=== PATIENT | male | born 1960 ===

== ENCOUNTER 2017-01-12 22:38 | Emergency (ER) | payer OTHER ==
[2017-01-12 22:38] VITALS: BMI 31.1
[2017-01-12 23:11] VITALS: BP 146/85; PULSE 71; RESP 18; TEMP 98.1; O2SAT 95
[2017-01-12] MEDS ORDERED: Oxycodone/Acetaminophen 5/325 mg Tab PO STA (23:31)
[2017-01-12] MEDS ORDERED: Oxycodone/Acetaminophen 5/325 mg Tab ONE (23:41)
--- NOTE | 2017-01-13 00:07 | C.PDOC ---
History Of Present Illness 56 year old male presents to the ED with complaints of left hand pain. Patient states it began four years ago with an injury and notes two weeks ago he began to use a brace for his hand. Pt was seen by PMD and was prescribed tramadol for pain is using medications but with no relief to the pain in the left hand. Patient denies any radiation of pain to his left arm, weakness, numbness. Time Seen by Provider: 01/12/17 23:10 Chief Complaint (Nursing): Finger,Hand,&Wrist History Per: Patient History/Exam Limitations: no limitations Onset/Duration Of Symptoms: Persistent Current Symptoms Are (Timing): Still Present Quality: "Pain" Exacerbating Factor(s): Movement Recent travel outside of the [place]: No Past Medical History Reviewed: Historical Data, Nursing Documentation, Vital Signs Vital Signs: Last Vital Signs Temp 98.1 F 01/12/17 23:09 Pulse 71 01/12/17 23:09 Resp 18 01/12/17 23:09 BP 146/85 01/12/17 23:09 Pulse Ox 95 01/13/17 00:20 - Medical History PMH: Arthritis, Asthma, Diabetes, Gastritis (treated with protonix), Hypercholesterolemia Family History: States: Unknown Family Hx - Social History Hx Tobacco Use: Yes Hx Alcohol Use: Yes Hx Substance Use: No - Immunization History Hx Tetanus Toxoid Vaccination: Yes Hx Influenza Vaccination: Yes Hx Pneumococcal Vaccination: Yes Review Of Systems Constitutional: Negative for: Fever, Chills, Sweats Cardiovascular: Negative for: Chest Pain, Palpitations Respiratory: Negative for: Cough, Shortness of Breath Gastrointestinal: Negative for: Nausea, Vomiting, Abdominal Pain, Diarrhea Musculoskeletal: Positive for: Hand Pain (left hand pain) Neurological: Negative for: Headache Physical Exam - Physical Exam Appears: Non-toxic, No Acute Distress Skin: Warm, Dry Eye(s): bilateral: Normal Inspection, PERRL Oral Mucosa: Moist Neck: Supple Chest: Symmetrical, No Deformity Cardiovascular: Rhythm Regular Respiratory: No Rales, No Rhonchi, No Stridor, No Wheezing Extremity: Normal ROM, Capillary Refill (good capillary refill ), No Deformity, Swelling (swelling to the dorsal aspect of the thenar eminence of left hand with localized warmth and erythema), Other (no proximal streaking, no fingers involvement) Extremity: Bilateral: Atraumatic Pulses: Left Radial: Normal, Right Radial: Normal Neurological/Psych: Oriented x3, Normal Motor, Normal Sensation Gait: Steady ED Course And Treatment O2 Sat by Pulse Oximetry: 95 (room air) Pulse Ox Interpretation: Normal Progress Note: Pt received PO clindamycin and percocet and was placed in sling for elevation. Advised wound check in 2 days with pMD -Area was marked with skin marker. Pt understands return precautions Reassessment Condition: Improved Disposition Counseled Patient/Family Regarding: Diagnosis, Need For Followup, Rx Given - Disposition Referrals: Nick Clark MD [Medical Doctor] - Disposition: HOME/ ROUTINE Disposition Time: 00:04 Condition: STABLE Additional Instructions: Please take meds as directed Apply warm compress to affected hand Wound check on friday with PMD Return to ER if worse Prescriptions: Clindamycin [Cleocin] 300 mg PO QID #28 cap Instructions: Cellulitis (ED) - Clinical Impression Clinical Impression: Cellulitis of hand excluding fingers - Scribe Statement The provider has reviewed the documentation as recorded by the Scribcece Aroryo All medical record entries made by the Albaibcece were at my direction and personally dictated by me. I have reviewed the chart and agree that the record accurately reflects my personal performance of the history, physical exam, medical decision making, and the department course for this patient. I have also personally directed, reviewed, and agree with the discharge instructions and disposition.
--- NOTE | 2017-01-13 00:07 | C.PDOC ---
Time Seen by Provider: 01/12/17 23:10 Chief Complaint (Nursing): Finger,Hand,&Wrist Past Medical History Vital Signs: Last Vital Signs Temp 98.1 F 01/12/17 23:09 Pulse 71 01/12/17 23:09 Resp 18 01/12/17 23:09 BP 146/85 01/12/17 23:09 Pulse Ox 95 01/12/17 23:09 - Medical History PMH: Arthritis, Asthma, Diabetes, Gastritis (treated with protonix), Hypercholesterolemia Family History: States: Unknown Family Hx - Social History Hx Tobacco Use: Yes Hx Alcohol Use: Yes Hx Substance Use: No - Immunization History Hx Tetanus Toxoid Vaccination: Yes Hx Influenza Vaccination: Yes Hx Pneumococcal Vaccination: Yes ED Course And Treatment O2 Sat by Pulse Oximetry: 95 Disposition Counseled Patient/Family Regarding: Diagnosis, Need For Followup, Rx Given - Disposition Referrals: Nick Clark MD [Medical Doctor] - Disposition: HOME/ ROUTINE Disposition Time: 00:04 Condition: STABLE Additional Instructions: Please take meds as directed Apply warm compress to affected hand Wound check on friday with PMD Return to ER if worse Prescriptions: Clindamycin [Cleocin] 300 mg PO QID #28 cap Instructions: Cellulitis (ED) - Clinical Impression Clinical Impression: Cellulitis of hand excluding fingers
== END 2017-01-13 00:12 | disposition home or self-care (01) ==
LOC: C.ER 22:38
DX: L03.114 Cellulitis of left upper limb (principal); E78.00 Pure hypercholesterolemia, unspecified; E11.9 Type 2 diabetes mellitus without complications; F17.210 Nicotine dependence, cigarettes, uncomplicated

== ENCOUNTER 2018-08-19 13:56 | Inpatient (IN) | payer OTHER ==
[2018-08-19 14:12] VITALS: BMI 32.9
[2018-08-19] MEDS ORDERED: Albuterol-Ipratrop 3 mg / 0.5 (3 ml) UD INH STA ×3 (14:18→15:42)
[2018-08-19] MEDS ORDERED: Albuterol-Ipratrop 3 mg / 0.5 (3 ml) UD ONE ×4 (14:19→20:06)
--- NOTE | 2018-08-19 15:08 | C.PDOC ---
History Of Present Illness 57 y/o male comes in stating that he was sent here by Dr. Clark for evaluation of COPD exacerbation and elevated blood sugar. States his blood sugar was upwards to [address] Clark. Patient reports 3-4 day history of difficulty breathing, intermittent chest tightness, and worsening cough with white sputum. States he uses ventolin pump without relief. Patient also reports that he only takes his diabetes medications once a week and doesnt monitor what he eats. Also complains of dry mouth and increased urinary frequency over last 2 days. Otherwise no fever, chills, chest pain, palpitations, nausea, vomiting, or abdominal pain. Time Seen by Provider: 08/19/18 14:24 Chief Complaint (Nursing): Shortness Of Breath History Per: Patient History/Exam Limitations: no limitations Onset/Duration Of Symptoms: Days Current Symptoms Are (Timing): Still Present Past Medical History Reviewed: Historical Data, Nursing Documentation, Vital Signs Vital Signs: Last Vital Signs Temp Pulse 84 08/19/18 14:12 Resp 22 08/19/18 14:12 BP 133/82 08/19/18 14:12 Pulse Ox 98 08/19/18 14:12 - Medical History PMH: Arthritis, Asthma, COPD, Diabetes, Gastritis (treated with protonix), Hypercholesterolemia Family History: States: No Known Family Hx - Social History Hx Tobacco Use: Yes Hx Alcohol Use: No (pt denies) Hx Substance Use: No - Immunization History Hx Tetanus Toxoid Vaccination: Yes Hx Influenza Vaccination: Yes Hx Pneumococcal Vaccination: Yes Review Of Systems Except As Marked, All Systems Reviewed And Found Negative. Cardiovascular: Positive for: Other (Chest tightness) Respiratory: Positive for: Cough (productive, with white sputum), Shortness of Breath Physical Exam - Physical Exam Appears: Non-toxic, No Acute Distress, Other (lying on stretcher with nebulizer mask on) Skin: Warm, Dry Head: Atraumatic, Normacephalic Eye(s): bilateral: Normal Inspection Oral Mucosa: Moist Neck: Supple Cardiovascular: Rhythm Regular, No Murmur Respiratory: No Rales, No Rhonchi, Wheezing (throughout with occasional cough) Gastrointestinal/Abdominal: Tenderness (to epigastric region, mild) Extremity: Bilateral: Atraumatic, Normal Color And Temperature, Normal ROM Neurological/Psych: Oriented x3, Normal Speech (speaking full sentences) ED Course And Treatment - Laboratory Results Result Diagrams: 08/19/18 15:08 08/19/18 15:08 ECG: Interpreted By Me, Viewed By Me ECG Rhythm: Sinus Rhythm (Normal) Interpretation Of ECG: Normal intervals. Normal axis. No ST/T wave abnormalities. Rate From EC O2 Sat by Pulse Oximetry: 98 (RA) Pulse Ox Interpretation: Normal - Other Rad CXR X-Ray: Read By Radiologist Interpretation: FINDINGS: LUNGS: No focal consolidation. Please note that chest x-ray has limited sensitivity for the detection of pulmonary masses. PLEURA: No significant pleural effusion identified. No definite pneumothorax . CARDIOVASCULAR: Heart size appears within normal limits. No atherosclerotic calcification present. OSSEOUS STRUCTURES: No acute osseous abnormality identified. VISUALIZED UPPER ABDOMEN: Unremarkable. OTHER FINDINGS: None. IMPRESSION: No focal consolidation. Medical Decision Making Medical Decision Making: Impression: Asthma, COPD exacerbation, hyperglycemia Plan: --VBG --EKG --Bloodwork --Chest XR --UA --Duoneb --Solumedrol IV Disposition Discussed With Dr.: Eric Mayorga Doctor Will See Patient In The: Hospital Counseled Patient/Family Regarding: Studies Performed, Diagnosis - Disposition Disposition: HOSPITALIZED Disposition Time: 15:56 Condition: FAIR Forms: [employer] ([place]) - Clinical Impression Clinical Impression: Asthma exacerbation, Hyperglycemia - Scribe Statement The provider has reviewed the documentation as recorded by the Mendoza Hooks Provider Attestation: All medical record entries made by the Albaibcece were at my direction and personally dictated by me. I have reviewed the chart and agree that the record accurately reflects my personal performance of the history, physical exam, medical decision making, and the department course for this patient. I have also personally directed, reviewed, and agree with the discharge instructions and disposition.
[2018-08-19 15:13] LABS: BASO # 0.1 K/uL (0.0-0.2); BASO % 1.2 % (0.0-2.0); EOS # 0.2 K/uL (0.0-0.7); EOS % 3.2 % (0.0-4.0); HEMOGLOBIN 15.8 g/dL (12.0-18.0); LYMPH # 1.8 K/uL (1.0-4.3); LYMPH % 25.3 % (20.0-40.0); MEAN CELL VOLUME 93.5 fL (80.0-94.0); MEAN CORPUSCULAR HEMOGLOBIN 31.3 pg (27.0-31.0); MEAN CORPUSCULAR HGB CONC 33.5 g/dL (33.0-37.0); MEAN PLATELET VOLUME 9.1 fL (7.2-11.7); MONO # 0.6 K/uL (0.0-0.8); MONO % 8.5 % (0.0-10.0); NEUT # 4.3 K/uL (1.8-7.0); NEUT % 61.8 % (50.0-75.0); RBC 5.04 Mil/uL (4.40-5.90); RED CELL DISTRIBUTION WIDTH 13.6 % (11.5-14.5)
[2018-08-19 15:16] LABS: SQUAMOUS EPITHIAL 1 /hpf (0-5); URINE BILIRUBIN NEGATIVE (NEGATIVE); URINE BLOOD NEGATIVE (NEGATIVE); URINE CLARITY Clear (Clear); URINE COLOR Straw (YELLOW); URINE GLUCOSE (UA) 3+ mg/dL (Normal); URINE LEUKOCYTE ESTERASE NEG Leu/uL (Negative); URINE PROTEIN NEGATIVE (NEGATIVE); URINE UROBILINOGEN NORMAL mg/dL (0.2-1.0)
[2018-08-19] MEDS ORDERED: (Novolin R) Insulin Human Regular 100 units/ml vial IV ONE (15:22)
--- NOTE | 2018-08-19 15:32 | RAD ---
HISTORY: chest pain COMPARISON: Chest x-ray performed 05/17/14 TECHNIQUE: Chest PA and lateral FINDINGS: LUNGS: No focal consolidation. Please note that chest x-ray has limited sensitivity for the detection of pulmonary masses. PLEURA: No significant pleural effusion identified. No definite pneumothorax . CARDIOVASCULAR: Heart size appears within normal limits. No atherosclerotic calcification present. OSSEOUS STRUCTURES: No acute osseous abnormality identified. VISUALIZED UPPER ABDOMEN: Unremarkable. OTHER FINDINGS: None. IMPRESSION: No focal consolidation.
[2018-08-19] MEDS ORDERED: (Novolin R) Insulin Human Regular 100 units/ml vial ONE ×2 (15:36→21:29)
[2018-08-19 15:38] LABS: ALB/GLOB RATIO 1.6 (1.0-2.1); ALBUMIN 4.7 g/dL (3.5-5.0); ALT/SGPT 31 U/L (21-72); AST/SGOT 19 U/L (17-59); BLOOD UREA NITROGEN 19 mg/dL (9-20); CALCIUM 9.9 mg/dl (8.6-10.4); GFR NON-AFRICAN AMERICAN > 60
[2018-08-19 15:44] LABS: B-TYPE NATRIURETIC PEPTIDE 26.8 pg/mL (0-900)
[2018-08-19 15:44] LABS: VENOUS BLOOD GAS BASE EXCESS 0.5 mmol/L (0.0-2.0); VENOUS BLOOD GAS PCO2 44 mmHg (40-60); VENOUS BLOOD GAS PO2 49 mm/Hg (30-55); VENOUS BLOOD PH 7.38 (7.32-7.43)
--- NOTE | 2018-08-19 17:06 | CP.PCM.HP ---
<[place] - Last Filed: 08/19/18 17:57> History of Present Illness - History of Present Illness History of Present Illness: History and Physical for Dr. Mayorga Patient is a 57 year old male with PMHx asthma, DM II, CAD s/p stent 2 year ago, and chronic hip/back pain who presents to ED after being sent by PMD for shortness of breath and hyperglycemia. Patient states that he has had asthma since he was young and has always had difficulty breathing. He takes singulair and uses ventolin inhaler as often as every 2 hours, and going through an inhaler every 2 weeks. He takes one pill for DM, but is unsure which medication. Patient also has a history of CAD with coronary stenting, which was done in [place], but has not followed up with cardiology and takes no medications for CAD. Patient states today he was at his PMD (Dr. Vargas) for routine bloodwork/follow up and was sent to [facility] ED due to hyperglycemia and shortness of breath. He does have a history of seemingly uncontrolled diabetes with diabetic retinopathy. Patient does also have a history of chronic low ashley k/hip pain from hip injury s/p L STEPHANIE 2 years ago and takes pain medications chronically, but again unsure name of medication. Past medical Hx: asthma, DM II, DM retinopathy, CAD s/p stent 2 year ago, chronic hip/back pain Surgical hx: L STEPHANIE 2 years ago, Coronary angioplasty with stenting Allergies: ASA (reaction unknown) Social: Smokes 5-7 cigarettes/day since age 18, drinks 2-3 shots or beers on Fridays, occasional marijuana, denies other illicit drug or IV use Family Hx: Significant family hx of DM - father, mother, sister Medications: Ventolin, Singulair - Other medications will need to be confirmed with patient's pharmacy or patient states he will obtain list in the morning PMD: Dr. Vargas Present on Admission - Present on Admission Any Indicators Present on Admission: No Review of Systems - Constitutional Constitutional: absent: Chills, Fatigue, Fever - EENT Eyes: Blurred Vision (2/2 DM retinopathy). absent: Diplopia Nose/Mouth/Throat: absent: Epistaxis, Nasal Congestion - Cardiovascular Cardiovascular: absent: Chest Pain, Chest Pain at Rest, Palpitations, Pedal Edema - Gastrointestinal Gastrointestinal: absent: Abdominal Pain, Diarrhea, Nausea - Genitourinary Genitourinary: Nocturia, Urinary Frequency. absent: Dysuria - Musculoskeletal Musculoskeletal: Back Pain, Limited Range of Motion, Stiffness - Neurological Neurological: absent: Confusion, Dizziness, Focal Weakness - Psychiatric Psychiatric: absent: Anxiety, Depression - Endocrine Endocrine: Polydipsia, Polyuria. absent: Fatigue Past Patient History - Past Social History Smoking Status: Light Smoker < 10 Cigarettes Daily - CARDIAC Hx Hypercholesterolemia: Yes - PULMONARY Hx Asthma: Yes Hx Chronic Obstructive Pulmonary Disease (COPD): Yes - ENDOCRINE/METABOLIC Hx Endocrine Disorders: Yes Hx Diabetes Mellitus Type 2: Yes - MUSCULOSKELETAL/RHEUMATOLOGICAL Hx Arthritis: Yes - GASTROINTESTINAL Hx Gastritis: Yes (treated with protonix) - GENITOURINARY/GYNECOLOGICAL Hx Genitourinary Disorders: No - PSYCHIATRIC Hx Substance Use: No - SURGICAL HISTORY Hx Surgeries: Yes Hx Joint Replacement: Yes (left hip) - ANESTHESIA Hx Anesthesia: Yes Hx Anesthesia Reactions: No Meds Allergies/Adverse Reactions: Allergies Allergy/AdvReac Type Severity Reaction Status Date / Time aspirin Allergy SHORTNESS Verified 08/19/18 14:12 OF BREATH Physical Exam - Constitutional Appears: Non-toxic - Head Exam Head Exam: ATRAUMATIC, NORMOCEPHALIC - Eye Exam Eye Exam: EOMI - ENT Exam ENT Exam: Mucous Membranes Moist - Respiratory Exam Respiratory Exam: Wheezes (Diffuse inspiratory and expiratory wheezing). absent: Rales, Rhonchi - Cardiovascular Exam Cardiovascular Exam: REGULAR RHYTHM, +S1, +S2 - GI/Abdominal Exam GI & Abdominal Exam: Firm, Normal Bowel Sounds. absent: Tenderness - Extremities Exam Extremities exam: Positive for: pedal pulses present. Negative for: pedal edema, tenderness - Back Exam Back exam: absent: paraspinal tenderness, vertebral tenderness Additional comments: Lower back tenderness bilaterally, worse on left side - Neurological Exam Neurological exam: Alert, CN II-XII Intact, Oriented x3 Additional comments: Limited vision - unable to read his hospital bracelet - Psychiatric Exam Psychiatric exam: Normal Affect, Normal Mood - Skin Skin Exam: Dry, Intact, Normal Color Results - Vital Signs Recent Vital Signs: Last Vital Signs Temp Pulse 84 08/19/18 14:12 Resp 22 08/19/18 14:12 BP 133/82 08/19/18 14:12 Pulse Ox 98 08/19/18 15:56 - Labs Result Diagrams: 08/19/18 15:08 08/19/18 15:08 Labs: Laboratory Results - last 24 hr 08/19/18 08/19/18 08/19/18 14:18 15:08 15:08 WBC 7.0 RBC 5.04 Hgb 15.8 Hct 47.1 MCV 93.5 MCH 31.3 H MCHC 33.5 RDW 13.6 Plt Count 253 MPV 9.1 Neut % (Auto) 61.8 Lymph % (Auto) 25.3 Dillon % (Auto) 8.5 Eos % (Auto) 3.2 Baso % (Auto) 1.2 Neut # (Auto) 4.3 Lymph # (Auto) 1.8 Dillon # (Auto) 0.6 Eos # (Auto) 0.2 Baso # (Auto) 0.1 pO2 VBG pH VBG pCO2 VBG HCO3 VBG Total CO2 VBG O2 Sat (Calc) VBG Base Excess VBG Potassium Glucose Lactate Crit Value Called To Crit Value Called By Crit Value Read Back Blood Gas Notified Time Sodium 134 Potassium 4.5 Chloride 99 Carbon Dioxide 26 Anion Gap 14 BUN 19 Creatinine 0.7 L Est GFR ( Amer) > 60 Est GFR (Non-Af Amer) > 60 POC Glucose (mg/dL) 465 H* Random Glucose 491 H* Calcium 9.9 Total Bilirubin 0.5 AST 19 ALT 31 Alkaline Phosphatase 127 H Troponin I < 0.0120 NT-Pro-B Natriuret Pep 26.8 Total Protein 7.7 Albumin 4.7 Globulin 3.0 Albumin/Globulin Ratio 1.6 Venous Blood Potassium Urine Color Urine Clarity Urine pH Ur Specific [place] Urine Protein Urine Glucose (UA) Urine Ketones Urine Blood Urine Nitrate Urine Bilirubin Urine Urobilinogen Ur Leukocyte Esterase Urine WBC (Auto) Urine RBC (Auto) Ur Squamous Epith Cells 08/19/18 08/19/18 15:08 15:35 WBC RBC Hgb Hct MCV MCH MCHC RDW Plt Count MPV Neut % (Auto) Lymph % (Auto) Dillon % (Auto) Eos % (Auto) Baso % (Auto) Neut # (Auto) Lymph # (Auto) Dillon # (Auto) Eos # (Auto) Baso # (Auto) pO2 49 VBG pH 7.38 VBG pCO2 44 VBG HCO3 24.9 VBG Total CO2 27.4 VBG O2 Sat (Calc) 88.1 H VBG Base Excess 0.5 VBG Potassium 4.2 Glucose 423 H* Lactate 1.3 Crit Value Called To Ioana shipley md Crit Value Called By Wandy Crit Value Read Back Y Blood Gas Notified Time 1543 Sodium 136.0 Potassium Chloride 101.0 Carbon Dioxide Anion Gap BUN Creatinine Est GFR ( Amer) Est GFR (Non-Af Amer) POC Glucose (mg/dL) Random Glucose Calcium Total Bilirubin AST ALT Alkaline Phosphatase Troponin I NT-Pro-B Natriuret Pep Total Protein Albumin Globulin Albumin/Globulin Ratio Venous Blood Potassium 4.2 Urine Color Straw Urine Clarity Clear Urine pH 6.0 Ur Specific [place] 1.029 Urine Protein Negative Urine Glucose (UA) 3+ H Urine Ketones Negative Urine Blood Negative Urine Nitrate Negative Urine Bilirubin Negative Urine Urobilinogen Normal Ur Leukocyte Esterase Neg Urine WBC (Auto) < 1 Urine RBC (Auto) 1 Ur Squamous Epith Cells 1 Assessment & Plan - Assessment and Plan (Free Text) Assessment: Asthma, uncontrolled -CXR 08/19/18: No focal consolidations -F/u pharmacy for home meds -Meds started: --Duoneb INH Q4 YUNG --Breo 100-25 1 puff daily --Singular 10 mg PO HS --Spiriva 18 mcg INH Q24 YUNG --Solumedrol 40 mg IV Daily -Labs: --Routine labs --VBG WNL DM II, Uncontrolled -ISS high dose -Lisinopril 2.5 mg po daily -Accuchecks ACHS -A1C CAD w/ hx coronary stenting -Will start patient on statin PPx -Heparin 5000 U SC Q8 Assessment and plan discussed with Dr. iTerra Hill, PGY-1 <Eric Mayorga H - Last Filed: 08/19/18 19:24> Results - Vital Signs Recent Vital Signs: Last Vital Signs Temp 98.3 F 08/19/18 18:21 Pulse 84 08/19/18 18:21 Resp 20 08/19/18 17:57 BP 134/71 08/19/18 18:21 Pulse Ox 96 08/19/18 18:21 - Labs Result Diagrams: 08/19/18 15:08 08/19/18 15:08 Labs: Laboratory Results - last 24 hr 08/19/18 08/19/18 08/19/18 14:18 15:08 15:08 WBC 7.0 RBC 5.04 Hgb 15.8 Hct 47.1 MCV 93.5 MCH 31.3 H MCHC 33.5 RDW 13.6 Plt Count 253 MPV 9.1 Neut % (Auto) 61.8 Lymph % (Auto) 25.3 Dillon % (Auto) 8.5 Eos % (Auto) 3.2 Baso % (Auto) 1.2 Neut # (Auto) 4.3 Lymph # (Auto) 1.8 Dillon # (Auto) 0.6 Eos # (Auto) 0.2 Baso # (Auto) 0.1 pO2 VBG pH VBG pCO2 VBG HCO3 VBG Total CO2 VBG O2 Sat (Calc) VBG Base Excess VBG Potassium Glucose Lactate Crit Value Called To Crit Value Called By Crit Value Read Back Blood Gas Notified Time Sodium 134 Potassium 4.5 Chloride 99 Carbon Dioxide 26 Anion Gap 14 BUN 19 Creatinine 0.7 L Est GFR ( Amer) > 60 Est GFR (Non-Af Amer) > 60 POC Glucose (mg/dL) 465 H* Random Glucose 491 H* Calcium 9.9 Total Bilirubin 0.5 AST 19 ALT 31 Alkaline Phosphatase 127 H Troponin I < 0.0120 NT-Pro-B Natriuret Pep 26.8 Total Protein 7.7 Albumin 4.7 Globulin 3.0 Albumin/Globulin Ratio 1.6 Venous Blood Potassium Urine Color Urine Clarity Urine pH Ur Specific [place] Urine Protein Urine Glucose (UA) Urine Ketones Urine Blood Urine Nitrate Urine Bilirubin Urine Urobilinogen Ur Leukocyte Esterase Urine WBC (Auto) Urine RBC (Auto) Ur Squamous Epith Cells 08/19/18 08/19/18 08/19/18 15:08 15:35 18:19 WBC RBC Hgb Hct MCV MCH MCHC RDW Plt Count MPV Neut % (Auto) Lymph % (Auto) Dillon % (Auto) Eos % (Auto) Baso % (Auto) Neut # (Auto) Lymph # (Auto) Dillon # (Auto) Eos # (Auto) Baso # (Auto) pO2 49 VBG pH 7.38 VBG pCO2 44 VBG HCO3 24.9 VBG Total CO2 27.4 VBG O2 Sat (Calc) 88.1 H VBG Base Excess 0.5 VBG Potassium 4.2 Glucose 423 H* Lactate 1.3 Crit Value Called To Ioana shipley md Crit Value Called By Lendl Crit Value Read Back Y Blood Gas Notified Time 1543 Sodium 136.0 Potassium Chloride 101.0 Carbon Dioxide Anion Gap BUN Creatinine Est GFR ( Amer) Est GFR (Non-Af Amer) POC Glucose (mg/dL) 343 H Random Glucose Calcium Total Bilirubin AST ALT Alkaline Phosphatase Troponin I NT-Pro-B Natriuret Pep Total Protein Albumin Globulin Albumin/Globulin Ratio Venous Blood Potassium 4.2 Urine Color Straw Urine Clarity Clear Urine pH 6.0 Ur Specific [place] 1.029 Urine Protein Negative Urine Glucose (UA) 3+ H Urine Ketones Negative Urine Blood Negative Urine Nitrate Negative Urine Bilirubin Negative Urine Urobilinogen Normal Ur Leukocyte Esterase Neg Urine WBC (Auto) < 1 Urine RBC (Auto) 1 Ur Squamous Epith Cells 1 Attending/Attestation - Attestation I have personally seen and examined this patient.: Yes I have fully participated in the care of the patient.: Yes I have reviewed all pertinent clinical information: Yes Notes (Text): 08/19/18 19:21 Medical attending: Patient was seen and examined by me, Reviewed the above note by the resident The patient was not in any acute distress when I came and saw him however the patient was wheezing and there were elevated sugars as well. The patient will be on solumedrol as well as longer acting maintenace medication for asthma exacerbation Eric Mayorga
[2018-08-19] MEDS ORDERED: Albuterol-Ipratrop 3 mg / 0.5 (3 ml) UD INH SCH (20:00)
[2018-08-19] MEDS: Albuterol-Ipratrop 3 mg / 0.5 (3 ml) UD INH SCH (20:08)
[2018-08-19] MEDS: (Novolin R) Insulin Human Regular 100 units/ml vial SC SCH (21:22)
[2018-08-19] MEDS ORDERED: (Novolin R) Insulin Human Regular 100 units/ml vial SC SCH (22:00)
[2018-08-20] MEDS: Albuterol-Ipratrop 3 mg / 0.5 (3 ml) UD INH SCH ×6 (00:08→19:55)
[2018-08-20 05:04] LABS: BASO % 0.5 % (0.0-2.0); HEMOGLOBIN 14.6 g/dL (12.0-18.0); LYMPH % 11.2 % (20.0-40.0); MEAN CELL VOLUME 91.9 fL (80.0-94.0); MEAN CORPUSCULAR HEMOGLOBIN 30.9 pg (27.0-31.0); MEAN CORPUSCULAR HGB CONC 33.6 g/dL (33.0-37.0); MEAN PLATELET VOLUME 8.3 fL (7.2-11.7); MONO # 0.2 K/uL (0.0-0.8); MONO % 2.5 % (0.0-10.0); NEUT # 7.6 K/uL (1.8-7.0); NEUT % 85.8 % (50.0-75.0); RBC 4.74 Mil/uL (4.40-5.90); RED CELL DISTRIBUTION WIDTH 13.2 % (11.5-14.5); WHITE BLOOD COUNT 8.9 K/uL (4.8-10.8)
[2018-08-20 06:14] LABS: ALB/GLOB RATIO 1.6 (1.0-2.1); ALBUMIN 4.3 g/dL (3.5-5.0); ALT/SGPT 30 U/L (21-72); AST/SGOT 17 U/L (17-59); BLOOD UREA NITROGEN 18 mg/dL (9-20); GFR NON-AFRICAN AMERICAN > 60
[2018-08-20] MEDS ORDERED: Tiotropium 18 mcg Cap For Inhalation INH SCH (08:00)
[2018-08-20] MEDS ORDERED: Fluticasone-Vilanterol 100/25mcg Diskus INH SCH (08:00)
[2018-08-20] MEDS ORDERED: (Novolog) Insulin Aspart, Recombinant 100 u/ml 10 ml vial ONE (09:43)
[2018-08-20] MEDS: (Novolin R) Insulin Human Regular 100 units/ml vial SC SCH ×4 (09:43→22:02)
[2018-08-20] MEDS ORDERED: MethylPREDNISolone 40 mg Vial IVP SCH (10:00)
--- NOTE | 2018-08-20 13:01 | CP.PCM.PN ---
<Gemini Anna - Last Filed: 08/20/18 12:57> Subjective - Date & Time of Evaluation Date of Evaluation: 08/20/18 Time of Evaluation: 12:57 - Subjective Subjective: Gemini Anna PGY1 Progress Note for Dr. Mayorga Pt was examined at bedside this morning. He reports continuation of his wheezing and shortness of breath. he reports mild relief after nebulizer treatments but worsening thereafter. He denies fever, chills, chest pain, abdominal pain, nausea, vomiting, diarrhea. Objective - Vital Signs/Intake and Output Vital Signs (last 24 hours): Temp Pulse Resp BP Pulse Ox 97.9 F 82 18 145/89 96 08/20/18 10:20 08/20/18 10:20 08/20/18 10:20 08/20/18 10:20 08/20/18 10:20 - Medications Medications: Current Medications Albuterol/Ipratropium (Duoneb 3 Mg/0.5 Mg (3 Ml) Ud) 3 ml INH RQ4 [facility] Last Admin: 08/20/18 04:24 Dose: Not Given Fluticasone/Vilanterol (Breo Ellipta 100-25 Mcg Inh) 1 puff INH RQD [facility] Last Admin: 08/20/18 10:30 Dose: Not Given Heparin Sodium (Porcine) (Heparin) 5,000 units SC Q8 [facility] Last Admin: 08/20/18 07:20 Dose: 5,000 units Insulin Human Isoph/Insulin Regular (Novolin 70/30 (70/30 Units/Ml) 10 Ml) 15 units SC ACHS [facility] Insulin Human Regular (Novolin R) 0 unit SC ACHS [facility]; Protocol Last Admin: 08/20/18 09:43 Dose: 6 units Lisinopril (Zestril) 2.5 mg PO DAILY [facility] Last Admin: 08/20/18 10:29 Dose: 2.5 mg Methylprednisolone (Solu-Medrol) 40 mg IVP Q6H [facility]; Taper Stop: 08/24/18 11:14 Montelukast Sodium (Singulair) 10 mg PO HS [facility] Last Admin: 08/19/18 21:23 Dose: 10 mg Nicotine (Nicoderm Cq) 1 patch TD DAILY [facility] Pneumococcal Polyvalent Vaccine (Pneumovax 23 Vaccine) 0.5 ml IM .ONCE ONE Stop: 08/21/18 10:01 Tiotropium [place] (Spiriva) 18 mcg INH RQ24 [facility] Last Admin: 08/20/18 10:30 Dose: Not Given - Labs Labs: 08/20/18 04:57 08/20/18 04:57 - Constitutional Appears: Well, No Acute Distress - Head Exam Head Exam: ATRAUMATIC, NORMOCEPHALIC - Eye Exam Eye Exam: EOMI, Normal appearance, PERRL Pupil Exam: NORMAL ACCOMODATION - ENT Exam ENT Exam: Mucous Membranes Moist - Respiratory Exam Respiratory Exam: Rhonchi, Wheezes, NORMAL BREATHING PATTERN. absent: Rales, Respiratory Distress Additional comments: rhonchi b/l expiratory wheezes - Cardiovascular Exam Cardiovascular Exam: REGULAR RHYTHM, +S1, +S2. absent: Gallop, Rubs, Murmur - GI/Abdominal Exam GI & Abdominal Exam: Soft, Normal Bowel Sounds. absent: Distended, Tenderness - Extremities Exam Extremities Exam: Normal Inspection. absent: Pedal Edema - Back Exam Back Exam: NORMAL INSPECTION - Neurological Exam Neurological Exam: Alert, Awake, Oriented x3 - Psychiatric Exam Psychiatric exam: Normal Affect, Normal Mood - Skin Skin Exam: Normal Color Assessment and Plan - Assessment and Plan (Free Text) Assessment: 57yo M with PMH DM, asthma, CAD, chronic L hip pain presents to ED with shortness of breath, admitted for asthma exacerbation. Plan: Asthma exacerbation - CXR 08/19/18: No focal consolidations - Duonebs INH Q4 [facility] - Breo 100-25 1 puff daily - Singular 10 mg PO HS - Spiriva 18 mcg INH Q24 [facility] - Solumedrol 40 mg IV q6h - incentive spirometry DM II, Uncontrolled - HbA1C 10 - ISS high dose - novolin 70/30 15u ACHS - Accuchecks ACHS CAD w/ hx coronary stenting - Crestor 5mg PO daily - Lisinopril 2.5 mg po daily Tobacco Use disorder - currently smokes 7 cigs/day - nicotine 14mcg patch - smoking cessation counseling PPx GI: pepcid 20 DVT: Heparin 5000 U SC Q8 [facility] Pt seen and and plan discussed with Dr. Mayorga <Eric Mayorga - Last Filed: 08/20/18 15:46> Objective - Vital Signs/Intake and Output Vital Signs (last 24 hours): Temp Pulse Resp BP Pulse Ox 98.9 F 78 16 124/85 99 08/20/18 13:35 08/20/18 13:35 08/20/18 13:35 08/20/18 13:35 08/20/18 13:35 - Medications Medications: Current Medications Albuterol/Ipratropium (Duoneb 3 Mg/0.5 Mg (3 Ml) Ud) 3 ml INH RQ4 [facility] Last Admin: 08/20/18 14:07 Dose: Not Given Famotidine (Pepcid) 20 mg PO DAILY [facility] Fluticasone/Vilanterol (Breo Ellipta 100-25 Mcg Inh) 1 puff INH RQD [facility] Last Admin: 08/20/18 10:30 Dose: Not Given Heparin Sodium (Porcine) (Heparin) 5,000 units SC Q8 [facility] Last Admin: 08/20/18 14:25 Dose: 5,000 units Insulin Human Isoph/Insulin Regular (Novolin 70/30 (70/30 Units/Ml) 10 Ml) 15 units SC [facility] Last Admin: 08/20/18 14:08 Dose: Not Given Insulin Human Regular (Novolin R) 0 unit SC [facility]; Protocol Last Admin: 08/20/18 14:08 Dose: Not Given Lisinopril (Zestril) 2.5 mg PO DAILY [facility] Last Admin: 08/20/18 10:29 Dose: 2.5 mg Methylprednisolone (Solu-Medrol) 40 mg IVP Q6H [facility]; Taper Stop: 08/24/18 11:14 Last Admin: 08/20/18 14:08 Dose: Not Given Montelukast Sodium (Singulair) 10 mg PO HS [facility] Last Admin: 08/19/18 21:23 Dose: 10 mg Nicotine (Nicoderm Cq) 1 patch TD DAILY [facility] Last Admin: 08/20/18 14:07 Dose: Not Given Pneumococcal Polyvalent Vaccine (Pneumovax 23 Vaccine) 0.5 ml IM .ONCE ONE Stop: 08/21/18 10:01 Rosuvastatin Calcium (Crestor) 5 mg PO HS [facility] Tiotropium [place] (Spiriva) 18 mcg INH RQ24 [facility] Last Admin: 08/20/18 10:30 Dose: Not Given - Labs Labs: 08/20/18 04:57 08/20/18 04:57 Attending/Attestation - Attestation I have personally seen and examined this patient.: Yes I have fully participated in the care of the patient.: Yes I have reviewed all pertinent clinical information, including history, physical exam and plan: Yes Notes (Text): 08/20/18 15:41 Medical attending: Patient was seen and examined by me with the medical residents. I reviewed the above note by the residents and agree. The patient The patient was not in any acute distress - however he explained that his breathing did not seem easier We increased the frequency of the IV solumedrol Also will need to add on additional insulin as his sugars remain elevated Eric Mayorga
[2018-08-20] MEDS ORDERED: MethylPREDNISolone 40 mg Vial ONE (13:46)
[2018-08-20] MEDS ORDERED: (Novolin R) Insulin Human Regular 100 units/ml vial ONE (13:48)
[2018-08-20] MEDS: MethylPREDNISolone 40 mg Vial IVP SCH ×2 (14:08→17:42)
[2018-08-20] MEDS: (Novolin 70/30) NPH/Regular 70/30 Units/ml 10 ml vial SC SCH ×3 (14:08→22:02)
[2018-08-20 16:43] VITALS: RESP 20
[2018-08-21] MEDS: MethylPREDNISolone 40 mg Vial IVP SCH ×4 (00:33→19:29)
[2018-08-21] MEDS: Albuterol-Ipratrop 3 mg / 0.5 (3 ml) UD INH SCH ×6 (00:56→19:30)
[2018-08-21 07:28] LABS: BASO # 0.1 K/uL (0.0-0.2); LYMPH # 0.8 K/uL (1.0-4.3); LYMPH % 6.8 % (20.0-40.0); MEAN CELL VOLUME 92.9 fL (80.0-94.0); MEAN CORPUSCULAR HEMOGLOBIN 31.2 pg (27.0-31.0); MEAN CORPUSCULAR HGB CONC 33.6 g/dL (33.0-37.0); MEAN PLATELET VOLUME 9.4 fL (7.2-11.7); MONO # 0.5 K/uL (0.0-0.8); MONO % 4.3 % (0.0-10.0); NEUT # 10.7 K/uL (1.8-7.0); NEUT % 87.9 % (50.0-75.0); NRBC % 0.1 % (0.0-2.0); PLATELET COUNT 243 K/uL (130-400); RED CELL DISTRIBUTION WIDTH 13.6 % (11.5-14.5); WHITE BLOOD COUNT 12.2 K/uL (4.8-10.8)
[2018-08-21 07:54] LABS: ALB/GLOB RATIO 1.6 (1.0-2.1); ALBUMIN 4.4 g/dL (3.5-5.0); ALT/SGPT 25 U/L (21-72); AST/SGOT 20 U/L (17-59); BLOOD UREA NITROGEN 17 mg/dL (9-20); GFR NON-AFRICAN AMERICAN > 60
[2018-08-21] MEDS: (Novolin 70/30) NPH/Regular 70/30 Units/ml 10 ml vial SC SCH ×4 (08:25→21:34)
[2018-08-21] MEDS: (Novolin R) Insulin Human Regular 100 units/ml vial SC SCH ×4 (08:25→21:23)
--- NOTE | 2018-08-21 09:12 | CP.PCM.PN ---
<Gemini Anna - Last Filed: 08/21/18 13:11> Subjective - Date & Time of Evaluation Date of Evaluation: 08/21/18 Time of Evaluation: 09:09 - Subjective Subjective: Gemini Anna PGY1 Progress Note for Dr. Mayorga Pt was examined at bedside this morning. He reports mild improvement in his breathing, but still complains of shortness of breath. He says he is eating well. He reports walking without difficulty. Pt denies chest pain, fever, chills, abdominal pain, nausea, vomiting, diarrhea, dysuria. Objective - Vital Signs/Intake and Output Vital Signs (last 24 hours): Temp Pulse Resp BP Pulse Ox 97.5 F L 76 20 134/62 95 08/21/18 08:00 08/21/18 08:00 08/21/18 08:00 08/21/18 08:00 08/21/18 08:00 Intake and Output: 08/21/18 08/21/18 06:59 18:59 Intake Total 500 Balance 500 - Medications Medications: Current Medications Albuterol/Ipratropium (Duoneb 3 Mg/0.5 Mg (3 Ml) Ud) 3 ml INH RQ4 [facility] Last Admin: 08/21/18 04:37 Dose: Not Given Famotidine (Pepcid) 20 mg PO DAILY [facility] Fluticasone/Vilanterol (Breo Ellipta 100-25 Mcg Inh) 1 puff INH RQD [facility] Last Admin: 08/20/18 10:30 Dose: Not Given Heparin Sodium (Porcine) (Heparin) 5,000 units SC Q8 [facility] Last Admin: 08/21/18 07:29 Dose: 5,000 units Insulin Glargine (Lantus) 15 unit SC HS [facility] Insulin Human Isoph/Insulin Regular (Novolin 70/30 (70/30 Units/Ml) 10 Ml) 20 units SC ACHS [facility] Insulin Human Regular (Novolin R) 0 unit SC ACHS [facility]; Protocol Last Admin: 08/20/18 22:02 Dose: 2 units Lisinopril (Zestril) 2.5 mg PO DAILY [facility] Last Admin: 08/20/18 10:29 Dose: 2.5 mg Methylprednisolone (Solu-Medrol) 40 mg IVP Q6H [facility]; Taper Stop: 08/24/18 11:14 Last Admin: 08/21/18 05:10 Dose: 40 mg Montelukast Sodium (Singulair) 10 mg PO HS [facility] Last Admin: 08/20/18 21:24 Dose: 10 mg Nicotine (Nicoderm Cq) 1 patch TD DAILY [facility] Last Admin: 08/20/18 14:07 Dose: Not Given Pneumococcal Polyvalent Vaccine (Pneumovax 23 Vaccine) 0.5 ml IM .ONCE ONE Stop: 08/21/18 10:01 Rosuvastatin Calcium (Crestor) [address] [facility] Last Admin: 08/20/18 21:28 Dose: 5 mg Tiotropium [place] (Spiriva) 18 mcg INH RQ24 [facility] Last Admin: 08/20/18 10:30 Dose: Not Given - Labs Labs: 08/21/18 07:16 08/21/18 07:16 - Additional Findings Additional findings: - Constitutional Appears: Well, No Acute Distress - Head Exam Head Exam: ATRAUMATIC, NORMOCEPHALIC - Eye Exam Eye Exam: EOMI, Normal appearance, PERRL Pupil Exam: NORMAL ACCOMODATION - ENT Exam ENT Exam: Mucous Membranes Moist - Respiratory Exam Respiratory Exam: Rhonchi, Wheezes, NORMAL BREATHING PATTERN. absent: Rales, Respiratory Distress Additional comments: rhonchi b/l expiratory wheezes improved - Cardiovascular Exam Cardiovascular Exam: REGULAR RHYTHM, +S1, +S2. absent: Gallop, Rubs, Murmur - GI/Abdominal Exam GI & Abdominal Exam: Soft, Normal Bowel Sounds. absent: Distended, Tenderness - Extremities Exam Extremities Exam: Normal Inspection. absent: Pedal Edema - Back Exam Back Exam: NORMAL INSPECTION - Neurological Exam Neurological Exam: Alert, Awake, Oriented x3 - Psychiatric Exam Psychiatric exam: Normal Affect, Normal Mood - Skin Skin Exam: Normal Color Assessment and Plan - Assessment and Plan (Free Text) Assessment: 57yo M with PMH DM, asthma, CAD, chronic L hip pain presents to ED with shortness of breath, admitted for asthma exacerbation. Plan: Asthma exacerbation - CXR 08/19/18: No focal consolidations - Duonebs INH Q4 [facility] - Breo 100-25 1 puff daily - Singular 10 mg PO HS - Spiriva 18 mcg INH Q24 [facility] - Solumedrol 40 mg IV q8h - incentive spirometry DM II, Uncontrolled - HbA1C 10 - ISS high dose - novolin 70/30 20u ACHS - lantus 15u HS - Accuchecks ACHS CAD w/ hx coronary stenting - Crestor 5mg PO daily - Lisinopril 2.5 mg po daily Tobacco Use disorder - currently smokes 7 cigs/day - nicotine 14mcg patch - smoking cessation counseling PPx GI: pepcid 20 DVT: Heparin 5000 U SC Q8 [facility] Pt seen and and plan discussed with Dr. Mayorga <Eric Mayorga - Last Filed: 08/21/18 16:00> Objective - Vital Signs/Intake and Output Vital Signs (last 24 hours): Temp Pulse Resp BP Pulse Ox 97.9 F 82 20 148/79 95 08/21/18 15:40 08/21/18 15:40 08/21/18 15:40 08/21/18 15:40 08/21/18 15:40 Intake and Output: 08/21/18 08/21/18 06:59 18:59 Intake Total 500 Balance 500 - Medications Medications: Current Medications Albuterol/Ipratropium (Duoneb 3 Mg/0.5 Mg (3 Ml) Ud) 3 ml INH RQ4 [facility] Last Admin: 08/21/18 13:15 Dose: 3 ml Famotidine (Pepcid) 20 mg PO DAILY [facility] Last Admin: 08/21/18 09:59 Dose: 20 mg Fluticasone/Vilanterol (Breo Ellipta 100-25 Mcg Inh) 1 puff INH RQD [facility] Last Admin: 08/20/18 10:30 Dose: Not Given Heparin Sodium (Porcine) (Heparin) 5,000 units SC Q8 [facility] Last Admin: 08/21/18 14:28 Dose: 5,000 units Insulin Glargine (Lantus) 15 unit SC HS [facility] Insulin Human Isoph/Insulin Regular (Novolin 70/30 (70/30 Units/Ml) 10 Ml) 20 units SC ACHS [facility] Last Admin: 08/21/18 12:48 Dose: 20 units Insulin Human Regular (Novolin R) 0 unit SC ACHS [facility]; Protocol Last Admin: 08/21/18 12:48 Dose: 6 units Lisinopril (Zestril) 2.5 mg PO DAILY [facility] Last Admin: 08/21/18 09:59 Dose: 2.5 mg Methylprednisolone (Solu-Medrol) 40 mg IVP Q8H [facility]; Taper Stop: 08/24/18 11:14 Last Admin: 08/21/18 12:12 Dose: 40 mg Montelukast Sodium (Singulair) 10 mg PO HS [facility] Last Admin: 08/20/18 21:24 Dose: 10 mg Nicotine (Nicoderm Cq) 1 patch TD DAILY [facility] Last Admin: 08/21/18 09:59 Dose: 1 patch Rosuvastatin Calcium (Crestor) 5 mg PO HS [facility] Last Admin: 08/20/18 21:28 Dose: 5 mg Tiotropium [place] (Spiriva) 18 mcg INH RQ24 [facility] Last Admin: 08/20/18 10:30 Dose: Not Given Zinc Acetate/Diphenhydramine (Benadryl 1% Zinc Acetate -0.1%) 1 cre TOP TID PRN PRN Reason: itchines - Labs Labs: 08/21/18 07:16 08/21/18 07:16 Attending/Attestation - Attestation I have personally seen and examined this patient.: Yes I have fully participated in the care of the patient.: Yes I have reviewed all pertinent clinical information, including history, physical exam and plan: Yes Notes (Text): 08/21/18 15:56 Medical attending: Patient was seen and examined by me. Reviewed the above note by the resident and agree with the above The patient was not in any acute distress when I came and saw him, he was able to walk with us on physical exam into the hallway and back without developing chest pain or palpitations - he is better he says but not back to before. He does report some + dizziness when he stands. Will continue with the IV solumedrol, Breo inhaler, as well as duonebulizers The patient we also discussed with him the elvated sugars and currently he is on insulin Eric Mayorga
[2018-08-21 09:51] LABS: BASOPHIL 1 % (0-2); LYMPHOCYTE 9 % (20-40); MONOCYTE 4 % (0-10); NEUTROPHIL 86 % (50-75); PLATELET ESTIMATE NORMAL (NORMAL); TOTAL CELLS COUNTED 100
[2018-08-21] MEDS ORDERED: Pneumococcal 23-Valent Vaccine IM ONE (10:00)
[2018-08-21] MEDS ORDERED: Diphenhydramine 1% Cream (1 oz) TOP PRN (10:48)
[2018-08-21] MEDS ORDERED: (Lantus) Insulin Glargine, Recombinant SC SCH (22:00)
[2018-08-22] MEDS: Albuterol-Ipratrop 3 mg / 0.5 (3 ml) UD INH SCH ×4 (00:15→11:35)
[2018-08-22 00:33] VITALS: O2SAT 97
[2018-08-22] MEDS: MethylPREDNISolone 40 mg Vial IVP SCH (03:38)
[2018-08-22 08:01] VITALS: PULSE 67; TEMP 97.9
[2018-08-22 08:08] LABS: BASO % 0.3 % (0.0-2.0); EOS % 0.1 % (0.0-4.0); LYMPH # 0.7 K/uL (1.0-4.3); LYMPH % 6.7 % (20.0-40.0); MEAN CELL VOLUME 93.6 fL (80.0-94.0); MEAN CORPUSCULAR HEMOGLOBIN 31.1 pg (27.0-31.0); MEAN CORPUSCULAR HGB CONC 33.3 g/dL (33.0-37.0); MEAN PLATELET VOLUME 9.8 fL (7.2-11.7); MONO # 0.5 K/uL (0.0-0.8); MONO % 4.8 % (0.0-10.0); NEUT # 9.5 K/uL (1.8-7.0); NEUT % 88.1 % (50.0-75.0); PLATELET COUNT 225 K/uL (130-400); RBC 4.49 Mil/uL (4.40-5.90); RED CELL DISTRIBUTION WIDTH 13.6 % (11.5-14.5); WHITE BLOOD COUNT 10.8 K/uL (4.8-10.8)
[2018-08-22 08:30] LABS: ALB/GLOB RATIO 1.6 (1.0-2.1); ALBUMIN 3.9 g/dL (3.5-5.0); ALT/SGPT 26 U/L (21-72); AST/SGOT 15 U/L (17-59); BLOOD UREA NITROGEN 17 mg/dL (9-20); CALCIUM 8.7 mg/dl (8.6-10.4); GFR NON-AFRICAN AMERICAN > 60
[2018-08-22] MEDS: (Novolin R) Insulin Human Regular 100 units/ml vial SC SCH (08:40)
[2018-08-22] MEDS: (Novolin 70/30) NPH/Regular 70/30 Units/ml 10 ml vial SC SCH (08:40)
[2018-08-22 09:23] VITALS: BP 124/66
[2018-08-22] MEDS ORDERED: MethylPREDNISolone 40 mg Vial IVP SCH (10:15)
--- NOTE | 2018-08-22 10:27 | CP.PCM.DIS ---
<Shira Riggs - Last Filed: 08/22/18 19:59> Provider - Provider Date of Admission: 08/21/18 11:28 Attending physician: Eric Mayorga DO Primary care physician: Dr. Bahena Consults: 08/19/18 17:42 Inpatient MANAGER FILE Core Measures Referral Routine Comment: Physician Instructions: Reason For Exam: COPD, Hyperglycemia Time Spent in preparation of Discharge (in minutes): 45 Hospital Course - Lab Results Lab Results: Micro Results 08/19/18 15:10 Blood Blood Culture - Preliminary NO GROWTH AFTER 48 HOURS 08/19/18 14:20 Blood Blood Culture - Preliminary NO GROWTH AFTER 48 HOURS Most Recent Lab Values WBC 10.8 K/uL (4.8-10.8) 08/22/18 07:56 RBC 4.49 Mil/uL (4.40-5.90) 08/22/18 07:56 Hgb 14.0 g/dL (12.0-18.0) 08/22/18 07:56 Hct 42.1 % (35.0-51.0) 08/22/18 07:56 MCV 93.6 fL (80.0-94.0) 08/22/18 07:56 MCH 31.1 pg (27.0-31.0) H 08/22/18 07:56 MCHC 33.3 g/dL (33.0-37.0) 08/22/18 07:56 RDW 13.6 % (11.5-14.5) 08/22/18 07:56 Plt Count 225 K/uL (130-400) 08/22/18 07:56 MPV 9.8 fL (7.2-11.7) 08/22/18 07:56 Neut % (Auto) 88.1 % (50.0-75.0) H 08/22/18 07:56 Lymph % (Auto) 6.7 % (20.0-40.0) L 08/22/18 07:56 [place] % (Auto) 4.8 % (0.0-10.0) 08/22/18 07:56 Eos % (Auto) 0.1 % (0.0-4.0) 08/22/18 07:56 Baso % (Auto) 0.3 % (0.0-2.0) 08/22/18 07:56 Neut # (Auto) 9.5 K/uL (1.8-7.0) H 08/22/18 07:56 Lymph # (Auto) 0.7 K/uL (1.0-4.3) L 08/22/18 07:56 [place] # (Auto) 0.5 K/uL (0.0-0.8) 08/22/18 07:56 Eos # (Auto) 0.0 K/uL (0.0-0.7) 08/22/18 07:56 Baso # (Auto) 0.0 K/uL (0.0-0.2) 08/22/18 07:56 Neutrophils % (Manual) 86 % (50-75) H 08/21/18 07:16 Lymphocytes % (Manual) 9 % (20-40) L 08/21/18 07:16 Monocytes % (Manual) 4 % (0-10) 08/21/18 07:16 Basophils % (Manual) 1 % (0-2) 08/21/18 07:16 Platelet Estimate Normal (NORMAL) 08/21/18 07:16 pO2 49 mm/Hg (30-55) 08/19/18 15:35 VBG pH 7.38 (7.32-7.43) 08/19/18 15:35 VBG pCO2 44 mmHg (40-60) 08/19/18 15:35 VBG HCO3 24.9 mmol/L 08/19/18 15:35 VBG Total CO2 27.4 mmol/L (22-28) 08/19/18 15:35 VBG O2 Sat (Calc) 88.1 % (40-65) H 08/19/18 15:35 VBG Base Excess 0.5 mmol/L (0.0-2.0) 08/19/18 15:35 VBG Potassium 4.2 mmol/L (3.6-5.2) 08/19/18 15:35 Sodium 136.0 mmol/l (132-148) 08/19/18 15:35 Chloride 101.0 mmol/L (98-107) 08/19/18 15:35 Glucose 423 mg/dl (75-110) H* 08/19/18 15:35 Lactate 1.3 mmol/L (0.7-2.1) 08/19/18 15:35 Crit Value Called To Ioana shipley md 08/19/18 15:35 Crit Value Called By Wandy 08/19/18 15:35 Crit Value Read Back Y 08/19/18 15:35 Blood Gas Notified Time 1543 08/19/18 15:35 Sodium 131 mmol/L (132-148) L 08/22/18 07:56 Potassium 4.2 mmol/L (3.6-5.2) 08/22/18 07:56 Chloride 99 mmol/L (98-107) 08/22/18 07:56 Carbon Dioxide 24 mmol/L (22-30) 08/22/18 07:56 Anion Gap 12 (10-20) 08/22/18 07:56 BUN 17 mg/dL (9-20) 08/22/18 07:56 Creatinine 0.7 mg/dL (0.8-1.5) L 08/22/18 07:56 Est GFR ( Amer) > 60 08/22/18 07:56 Est GFR (Non-Af Amer) > 60 08/22/18 07:56 POC Glucose (mg/dL) 194 mg/dL (65-110) H 08/22/18 06:11 Random Glucose 268 mg/dL (75-110) H D 08/22/18 07:56 Hemoglobin A1c 10.0 % (4.2-6.5) H 08/19/18 20:03 Calcium 8.7 mg/dl (8.6-10.4) 08/22/18 07:56 Phosphorus 3.5 mg/dL (2.5-4.5) 08/22/18 07:56 Magnesium 2.4 mg/dL (1.6-2.3) H 08/22/18 07:56 Total Bilirubin 0.6 mg/dL (0.2-1.3) 08/22/18 07:56 AST 15 U/L (17-59) L D 08/22/18 07:56 ALT 26 U/L (21-72) 08/22/18 07:56 Alkaline Phosphatase 75 U/L (38-126) 08/22/18 07:56 Troponin I < 0.0120 ng/mL (0.00-0.120) 08/19/18 15:08 NT-Pro-B Natriuret Pep 26.8 pg/mL (0-900) 08/19/18 15:08 Total Protein 6.3 g/dL (6.3-8.3) 08/22/18 07:56 Albumin 3.9 g/dL (3.5-5.0) 08/22/18 07:56 Globulin 2.4 gm/dL (2.2-3.9) 08/22/18 07:56 Albumin/Globulin Ratio 1.6 (1.0-2.1) 08/22/18 07:56 Venous Blood Potassium 4.2 mmol/L (3.6-5.2) 08/19/18 15:35 Urine Color Straw (YELLOW) 08/19/18 15:08 Urine Clarity Clear (Clear) 08/19/18 15:08 Urine pH 6.0 (5.0-8.0) 08/19/18 15:08 Ur Specific [place] 1.029 (1.003-1.030) 08/19/18 15:08 Urine Protein Negative mg/dL (NEGATIVE) 08/19/18 15:08 Urine Glucose (UA) 3+ mg/dL (Normal) H 08/19/18 15:08 Urine Ketones Negative mg/dL (NEGATIVE) 08/19/18 15:08 Urine Blood Negative (NEGATIVE) 08/19/18 15:08 Urine Nitrate Negative (NEGATIVE) 08/19/18 15:08 Urine Bilirubin Negative (NEGATIVE) 08/19/18 15:08 Urine Urobilinogen Normal mg/dL (0.2-1.0) 08/19/18 15:08 Ur Leukocyte Esterase Neg Scott/uL (Negative) 08/19/18 15:08 Urine WBC (Auto) < 1 /hpf (0-5) 08/19/18 15:08 Urine RBC (Auto) 1 /hpf (0-3) 08/19/18 15:08 Ur Squamous Epith Cells 1 /hpf (0-5) 08/19/18 15:08 Influenza Typ A,B (EIA) Negative for flu a/b (NEGATIVE) 08/19/18 20:01 - Hospital Course Hospital Course: HPI: Patient is a 57 year old male with PMHx asthma, DM II, CAD s/p stent 2 year ago, and chronic hip/back pain who presents to ED after being sent by PMD for shortness of breath and hyperglycemia. Patient states that he has had asthma since he was young and has always had difficulty breathing. He takes singulair and uses ventolin inhaler as often as every 2 hours, and going through an inhaler every 2 weeks. He takes one pill for DM, but is unsure which medication. Patient also has a history of CAD with coronary stenting, which was done in [place], but has not followed up with cardiology and takes no medications for CAD. Patient states today he was at his PMD (Dr. Vargas) for routine bloodwork/follow up and was sent to [facility] ED due to hyperglycemia and shortness of breath. He does have a history of seemingly uncontrolled diabetes with diabetic retinopathy. Patient does also have a history of chronic low back/hip pain from hip injury s/p L STEPHANIE 2 years ago and takes pain medications chronically, but again unsure name of medication. Hospital course: Patient was admitted on 08/21/18 for an Asthma exacerbation. Patient was started on nebulizer treatments, solumedrol, breo inhaler, and singulair. Chest xray was ordered and showed no focal consolidations. Patient was also given an incentive spirometer. The patient has a history of poorly controlled DM II and his glucose was also more elevated due to IV steroids; therefore, insulin was started during hospitalization. Patient's lung function improved and he no longer complained of dyspnea and wheezing. Patient's glucose was also more controlled. The patient is stable for discharge. He is to continue his home medications and start a new maintenance inhaler and a medrol dose pack; Of note, one of his home medications was adjusted: increased metformin to 1000mg PO BID (patient was instructed to take twice a day as prior to admission, he was only taking 500mg once a day). This is a brief summary of the hospital course. Please see EMR for full details. Discharge Exam - Head Exam Head Exam: ATRAUMATIC, NORMOCEPHALIC - Eye Exam Eye Exam: EOMI, Normal appearance - ENT Exam ENT Exam: Mucous Membranes Moist - Respiratory Exam Respiratory Exam: Wheezes (mild wheezing b/l (improved)), NORMAL BREATHING PATTERN. absent: Rales, Rhonchi, Respiratory Distress - Cardiovascular Exam Cardiovascular Exam: REGULAR RHYTHM, +S1, +S2 - GI/Abdominal Exam GI & Abdominal Exam: Normal Bowel Sounds, Soft, Unremarkable. absent: Distended, Firm, Tenderness - Extremities Exam Extremities exam: full ROM, normal inspection, pedal pulses present - Neurological Exam Neurological exam: Alert, Oriented x3 - Psychiatric Exam Psychiatric exam: Normal Affect, Normal Mood - Skin Skin Exam: Dry, Normal Color, Warm Discharge Plan - Discharge Medications Prescriptions: RX: Aspirin 81 mg PO DAILY #30 tab.chew Fluticasone/Salmeterol [Advair 250-50 Diskus] 1 each IH BID 30 Days #1 blst.w .dev RX: Lisinopril [Zestril] 2.5 mg PO DAILY #30 tab RX: MetFORMIN [glucoPHAGE] 1,000 mg PO BID #60 tab Methylprednisolone [Medrol Dose Pack (21 tabs)] 4 mg PO ASDIR #21 mg RX: Montelukast [Singulair] 10 mg PO HS #30 tab RX: Nicotine 14 mg/24 hr [Nicoderm CQ] 1 patch TD DAILY #30 patch RX: Rosuvastatin Calcium [Crestor] 5 mg PO HS #30 tab - Follow Up Plan Condition: FAIR Disposition: HOME/ ROUTINE Instructions: Type 2 Diabetes, Smoking: Not Just Harmful to Your Lungs and Heart, Asthma, Adult (DC), Diabetes Diet , Quitting Smoking Additional Instructions: Please follow up with Dr. Clark, your primary doctor, within 7 days. Please take medications as prescribed. 1. Advair 250/50 inhaler- take 1 puff in the morning and 1 puff at night 2. Medrol dose pack- take as instructed 3. Continue Ventolin as needed 4. Continue Singulair 10mg PO in the evening 5. Metformin 1000mg PO BID- take 1 tablet with breakfast and 1 tablet with dinner 6. Lisinopril 2.5mg PO daily- take 1 tablet with breakfast 7. Crestor 5mg PO HS- take 1 tablet with dinner 8. Aspirin 81mg PO daily Please avoid juice, candy, bread, rice, and any food with sugar as it will worsen your diabetes. Please stop smoking as it will worsen your health. Please return to the ED if symptoms return. Take care and be well. Por favor glen un seguimiento con el Dr. Clark, [place] mdico de cabecera, dentro de los 7 lopez. Por favor, tome los medicamentos segn lo prescrito. Evite los jugos, los dulces, el álvarez, el arroz y cualquier alimento con azcar, ya que empeorar car[place] diabetes. Por favor, asim de fumar ya que empeorar tu eileen. Por favor regrese a la ED si los sntomas regresan. Cudate y sintete antoine. <Eric Mayorga - Last Filed: 08/23/18 08:17> Provider - Provider Date of Admission: 08/21/18 11:28 Attending physician: Eric Mayorga DO Consults: 08/19/18 17:42 Inpatient MANAGER FILE Core Measures Referral Routine Comment: Physician Instructions: Reason For Exam: COPD, Hyperglycemia Hospital Course - Lab Results Lab Results: Micro Results 08/19/18 15:10 Blood Blood Culture - Preliminary NO GROWTH AFTER 3 DAYS 08/19/18 14:20 Blood Blood Culture - Preliminary NO GROWTH AFTER 3 DAYS Most Recent Lab Values WBC 10.8 K/uL (4.8-10.8) 08/22/18 07:56 RBC 4.49 Mil/uL (4.40-5.90) 08/22/18 07:56 Hgb 14.0 g/dL (12.0-18.0) 08/22/18 07:56 Hct 42.1 % (35.0-51.0) 08/22/18 07:56 MCV 93.6 fL (80.0-94.0) 08/22/18 07:56 MCH 31.1 pg (27.0-31.0) H 08/22/18 07:56 MCHC 33.3 g/dL (33.0-37.0) 08/22/18 07:56 RDW 13.6 % (11.5-14.5) 08/22/18 07:56 Plt Count 225 K/uL (130-400) 08/22/18 07:56 MPV 9.8 fL (7.2-11.7) 08/22/18 07:56 Neut % (Auto) 88.1 % (50.0-75.0) H 08/22/18 07:56 Lymph % (Auto) 6.7 % (20.0-40.0) L 08/22/18 07:56 [place] % (Auto) 4.8 % (0.0-10.0) 08/22/18 07:56 Eos % (Auto) 0.1 % (0.0-4.0) 08/22/18 07:56 Baso % (Auto) 0.3 % (0.0-2.0) 08/22/18 07:56 Neut # (Auto) 9.5 K/uL (1.8-7.0) H 08/22/18 07:56 Lymph # (Auto) 0.7 K/uL (1.0-4.3) L 08/22/18 07:56 [place] # (Auto) 0.5 K/uL (0.0-0.8) 08/22/18 07:56 Eos # (Auto) 0.0 K/uL (0.0-0.7) 08/22/18 07:56 Baso # (Auto) 0.0 K/uL (0.0-0.2) 08/22/18 07:56 Neutrophils % (Manual) 89 % (50-75) H 08/22/18 07:56 Lymphocytes % (Manual) 5 % (20-40) L 08/22/18 07:56 Monocytes % (Manual) 6 % (0-10) 08/22/18 07:56 Basophils % (Manual) 1 % (0-2) 08/21/18 07:16 Platelet Estimate Normal (NORMAL) 08/22/18 07:56 RBC Morphology Normal 08/22/18 07:56 pO2 49 mm/Hg (30-55) 08/19/18 15:35 VBG pH 7.38 (7.32-7.43) 08/19/18 15:35 VBG pCO2 44 mmHg (40-60) 08/19/18 15:35 VBG HCO3 24.9 mmol/L 08/19/18 15:35 VBG Total CO2 27.4 mmol/L (22-28) 08/19/18 15:35 VBG O2 Sat (Calc) 88.1 % (40-65) H 08/19/18 15:35 VBG Base Excess 0.5 mmol/L (0.0-2.0) 08/19/18 15:35 VBG Potassium 4.2 mmol/L (3.6-5.2) 08/19/18 15:35 Sodium 136.0 mmol/l (132-148) 08/19/18 15:35 Chloride 101.0 mmol/L (98-107) 08/19/18 15:35 Glucose 423 mg/dl (75-110) H* 08/19/18 15:35 Lactate 1.3 mmol/L (0.7-2.1) 08/19/18 15:35 Crit Value Called To Ioana shipley md 08/19/18 15:35 Crit Value Called By Wandy 08/19/18 15:35 Crit Value Read Back Y 08/19/18 15:35 Blood Gas Notified Time 1543 08/19/18 15:35 Sodium 131 mmol/L (132-148) L 08/22/18 07:56 Potassium 4.2 mmol/L (3.6-5.2) 08/22/18 07:56 Chloride 99 mmol/L (98-107) 08/22/18 07:56 Carbon Dioxide 24 mmol/L (22-30) 08/22/18 07:56 Anion Gap 12 (10-20) 08/22/18 07:56 BUN 17 mg/dL (9-20) 08/22/18 07:56 Creatinine 0.7 mg/dL (0.8-1.5) L 08/22/18 07:56 Est GFR ( Amer) > 60 08/22/18 07:56 Est GFR (Non-Af Amer) > 60 08/22/18 07:56 POC Glucose (mg/dL) 194 mg/dL (65-110) H 08/22/18 06:11 Random Glucose 268 mg/dL (75-110) H D 08/22/18 07:56 Hemoglobin A1c 10.0 % (4.2-6.5) H 08/19/18 20:03 Calcium 8.7 mg/dl (8.6-10.4) 08/22/18 07:56 Phosphorus 3.5 mg/dL (2.5-4.5) 08/22/18 07:56 Magnesium 2.4 mg/dL (1.6-2.3) H 08/22/18 07:56 Total Bilirubin 0.6 mg/dL (0.2-1.3) 08/22/18 07:56 AST 15 U/L (17-59) L D 08/22/18 07:56 ALT 26 U/L (21-72) 08/22/18 07:56 Alkaline Phosphatase 75 U/L (38-126) 08/22/18 07:56 Troponin I < 0.0120 ng/mL (0.00-0.120) 08/19/18 15:08 NT-Pro-B Natriuret Pep 26.8 pg/mL (0-900) 08/19/18 15:08 Total Protein 6.3 g/dL (6.3-8.3) 08/22/18 07:56 Albumin 3.9 g/dL (3.5-5.0) 08/22/18 07:56 Globulin 2.4 gm/dL (2.2-3.9) 08/22/18 07:56 Albumin/Globulin Ratio 1.6 (1.0-2.1) 08/22/18 07:56 Venous Blood Potassium 4.2 mmol/L (3.6-5.2) 08/19/18 15:35 Urine Color Straw (YELLOW) 08/19/18 15:08 Urine Clarity Clear (Clear) 08/19/18 15:08 Urine pH 6.0 (5.0-8.0) 08/19/18 15:08 Ur Specific [place] 1.029 (1.003-1.030) 08/19/18 15:08 Urine Protein Negative mg/dL (NEGATIVE) 08/19/18 15:08 Urine Glucose (UA) 3+ mg/dL (Normal) H 08/19/18 15:08 Urine Ketones Negative mg/dL (NEGATIVE) 08/19/18 15:08 Urine Blood Negative (NEGATIVE) 08/19/18 15:08 Urine Nitrate Negative (NEGATIVE) 08/19/18 15:08 Urine Bilirubin Negative (NEGATIVE) 08/19/18 15:08 Urine Urobilinogen Normal mg/dL (0.2-1.0) 08/19/18 15:08 Ur Leukocyte Esterase Neg Scott/uL (Negative) 08/19/18 15:08 Urine WBC (Auto) < 1 /hpf (0-5) 08/19/18 15:08 Urine RBC (Auto) 1 /hpf (0-3) 08/19/18 15:08 Ur Squamous Epith Cells 1 /hpf (0-5) 08/19/18 15:08 Influenza Typ A,B (EIA) Negative for flu a/b (NEGATIVE) 08/19/18 20:01 Attending/Attestation - Attestation I have personally seen and examined this patient.: Yes I have fully participated in the care of the patient.: Yes I have reviewed all pertinent clinical information, including history, physical exam and plan: Yes Notes (Text): 08/23/18 08:15 Medical attending: Patient was seen and examined by me. Agree with the above note by the resident The patient was not in any acute distress when I came and saw him. The patient was able to walk with us in the hallway without difficulty He had only minimal wheezing on our exam. He will need to contoinue with metformin - however he was only taking 500 once a day and we explained to him we changed to 1000 BID Also he will be on medication for his breathing including maintance medication Eric Mayorga
[2018-08-22 11:32] LABS: LYMPHOCYTE 5 % (20-40); MONOCYTE 6 % (0-10); NEUTROPHIL 89 % (50-75); TOTAL CELLS COUNTED 100
[2018-08-22 11:33] LABS: PLATELET ESTIMATE NORMAL (NORMAL)
--- NOTE | 2018-08-22 17:28 | CARD ---
APPROVED REPORT Date of service: 08/19/2018 EKG Measurement Heart [id number] <Conclusion> Normal sinus rhythm with sinus arrhythmia Normal ECG
== END 2018-08-22 11:54 | disposition home or self-care (01) | DRG 96 ==
LOC: C.ER 13:56 → C.9E 15:55 → C.5S 08-20 11:59 → OBSVTOIN 08-21 11:28
PROVIDERS: ADMIT Hospitalist; ATTEND Hospitalist
DX: J45.901 Unspecified asthma with (acute) exacerbation (principal); E11.319 Type 2 diabetes mellitus with unspecified diabetic retinopathy without macular edema; E11.65 Type 2 diabetes mellitus with hyperglycemia; I25.10 Atherosclerotic heart disease of native coronary artery without angina pectoris; F17.210 Nicotine dependence, cigarettes, uncomplicated; F12.90 Cannabis use, unspecified, uncomplicated; E78.00 Pure hypercholesterolemia, unspecified; Z96.642 Presence of left artificial hip joint; Z83.3 Family history of diabetes mellitus; Z95.5 Presence of coronary angioplasty implant and graft